=== PATIENT | male | born 2000 | race Caucasian/White ===

== ENCOUNTER 2021-03-19 05:50 | Emergency (ER) | payer BC, OTHER ==
[2021-03-19] MEDS ORDERED: Ibuprofen 600 MG Tab PO ONE (06:26)
--- NOTE | 2021-03-19 06:34 | EDM.PDOC ---
ED HPI GENERAL MEDICAL PROBLEM - General Chief Complaint: Upper Extremity Injury/Pain Stated Complaint: smashed finger Time Seen by Provider: 03/19/21 06:20 Source of Information: Reports: Patient History Limitations: Reports: No Limitations - History of Present Illness INITIAL COMMENTS - FREE TEXT/NARRATIVE: Patient was at work at [employer] and sustained an injury with a hammer to his left thumb. He was swinging the hammer with his right hand and his left thumb was accidently hit. It was looked at , open abrasions to the dorsal DIP with blood blister laterally noted. He was unable to bend at this joint and possibly some slight numbness so this was splinted and he was sent here. no previous injury, he is right handed. Did not take anything for it. no other injury. 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 [No Known Home Meds] 03/19/21 [History] Past Medical History - Infectious Disease History Infectious Disease History: Reports: None Social & Family History - Tobacco Use Tobacco Use Status *Q: Never Tobacco User Second Hand Smoke Exposure: No - Caffeine Use Caffeine Use: Reports: None - Alcohol Use Days Per Week of Alcohol Use: 2 Number of Drinks Per Day: 1 Total Drinks Per Week: 2 - Recreational Drug Use Recreational Drug Use: No Review of Systems - Review of Systems Review Of Systems: See Below Constitutional: Reports: No Symptoms Eyes: Reports: No Symptoms Ears: Reports: No Symptoms Nose: Reports: No Symptoms Mouth/Throat: Reports: No Symptoms Respiratory: Reports: No Symptoms Cardiovascular: Reports: No Symptoms GI/Abdominal: Reports: No Symptoms Genitourinary: Reports: No Symptoms Musculoskeletal: Reports: Joint Pain (left thumb) ED EXAM, GENERAL - Physical Exam Exam: See Below Exam Limited By: No Limitations General Appearance: Alert, WD/WN, No Apparent Distress Eye Exam: Bilateral Eye: EOMI, Normal Inspection Ears: Hearing Grossly Normal Nose: Normal Inspection, Normal Mucosa Throat/Mouth: Normal Voice, No Airway Compromise Head: Atraumatic Neck: Normal Inspection, Full Range of Motion Respiratory/Chest: No Respiratory Distress, Lungs Clear, Normal Breath Sounds Cardiovascular: Regular Rate, Rhythm, No Edema Extremities: Other (left thumb with abrasions on the dorsal DIP, decreased sensation laterally at both sides distal, capillary refill normal at < 3 sec. blood blister on the medial aspect laterally. Has opposition of thumb to the 5th, good thumbs up, no scaphoid tenderness, limted motion at DIP) Neurological: Alert, Oriented, CN II-XII Intact, Normal Cognition Course - Vital Signs Last Recorded V/S: Last Vital Signs Temp 36.8 C 03/19/21 06:04 Pulse Resp 20 03/19/21 06:04 BP 126/74 03/19/21 06:04 Pulse Ox 99 03/19/21 06:04 - Orders/Labs/Meds Orders: Active Orders 24 hr Category Date Time Status Fingers Thumb Lt FA [CR] Stat Exams 03/19/21 06:23 Ordered Ibuprofen [Motrin] Med 03/19/21 06:26 Once 600 mg PO ONETIME ONE - Radiology Interpretation Free Text/Narrative:: x-ray without any acute fracture, preliminary report only - Re-Assessments/Exams Free Text/Narrative Re-Assessment/Exam: 03/19/21 06:33 tetanus was done 07/2020. will get x-ray and give motrin 600 mg po Departure - Departure Time of Disposition: 06:54 Disposition: Home, Self-Care 01 Clinical Impression: Abrasion, Contusion of finger of left hand - Discharge Information *COPY OF PRESCRIPTION DRUG MONITORING REPORT IN PATIENT NICCI: Not Applicable Instructions: Abrasion, Hand Contusion, [id number], Hematoma, [id number] Additional Instructions: Ice the area multiple times a day. Wear the splint until you can move the joint without pain. Take aleve twice a day or motrin 600 mg every 6 hours for pain and swelling. may return to work with splint in place ad limited lifting/grasping due to the thumb involvement but can use the hand otherwise Sepsis Event Note (ED) - Focused Exam Vital Signs: Vital Signs Temp Resp BP Pulse Ox 03/19/21 06:04 36.8 C 20 126/74 99 - My Orders Last 24 Hours: My Active Orders 03/19/21 06:23 Fingers Thumb Lt FA [CR] Stat 03/19/21 06:26 Ibuprofen [Motrin] 600 mg PO ONETIME ONE - Assessment/Plan Last 24 Hours: My Active Orders 03/19/21 06:23 Fingers Thumb Lt FA [CR] Stat 03/19/21 06:26 Ibuprofen [Motrin] 600 mg PO ONETIME ONE
[2021-03-19] MEDS ORDERED: Bacitracin Oint 1 GM U/D Packet TOP ONE (06:57)
== END 2021-03-19 07:20 | disposition home or self-care (01) ==
LOC: EDBD → LL.ED 05:50
DX: S60.012A Contusion of left thumb without damage to nail, initial encounter (principal); W22.09XA Striking against other stationary object, initial encounter
CPT/HCPCS: 73140-FA; 99283; A9270-GY